=== PATIENT | male | born 1940 | race Hispanic/Latino ===

== ENCOUNTER 2017-04-20 12:00 | Inpatient (IN) | payer MEDICARE ==
[~2017-04-20] VITALS: Ht 174 cm; Wt 138.0 kg
[2017-04-20 10:10] VITALS: BP 126/60
[2017-04-20 10:12] LABS: BASOPHILS % (AUTO) 0.3 % (0.0-5.0); EOSINOPHILS % (AUTO) 2.7 % (0.0-8.0); LYMPHOCYTES % (AUTO) 23.1 % (21.0-51.0); MEAN CORPUSCULAR HGB CONC 33.7 g/dL (32.0-36.0); MEAN CORPUSCULAR VOLUME 89.1 fL (79-99); NEUTROPHILS % (AUTO) 66.9 % (40.0-77.0); PLATELET COUNT (AUTO) 195 K/uL (130-400); RED BLOOD CELL COUNT(AUTO) 4.61 MIL/uL (4.50-6.20); RED CELL DISTRIBUTION WIDTH 13.2 % (11.0-15.5); WHITE BLOOD COUNT (AUTO) 6.8 K/uL (4.8-10.8)
[2017-04-20 10:22] LABS: CREATININE 1.4 mg/dL (0.5-1.5); POTASSIUM 4.5 mmol/L (3.5-5.1)
[~2017-04-20 12:00] MED LIST: ASPI-1181 PO; DOCU-272 PO; ESCI20TA36 PO; HUM10VIA6 SQ; SIMV80TA5 PO; TAMS0.4C32 PO; TRAZ-147 PO; TURM500C9 PO
[2017-04-20] MEDS ORDERED: CLOP75TA14 PO (17:35)
[2017-04-21] MEDS ORDERED: FLUO-126 PO (12:59)
[2017-04-21] MEDS ORDERED: PRAZ1CAP5 PO (12:59)
[2017-04-23] VITALS (27 sets, daily range): BP systolic 76–139; BP diastolic 33–67
[2017-04-23] MEDS: CEFAZOLIN SODIUM 1 GM VIAL IVP SCH ×2 (06:00→08:00)
[2017-04-23] MEDS ORDERED: SODIUM CHLORIDE 0.9% 1000ML 1,000 ML IV ONE (06:09)
[2017-04-23] MEDS ORDERED: DURAMORPH PF1 MG/ML 10ML AMP IV ONE (06:41)
[2017-04-23] MEDS ORDERED: BUPIVACAINE/EPI/PF 0.25% 30ML VIAL IJ ONE (06:41)
[2017-04-23] MEDS ORDERED: THROMBIN-JMI 20000 UNIT KIT TP ONE (06:42)
[2017-04-23] MEDS ORDERED: SODIUM CHLORIDE 0.9% 10 ML VIAL ONE (06:44)
[2017-04-23] MEDS ORDERED: MIDAZOLAM HCL 1 MG/ML 2ML VIAL ONE (07:03)
[2017-04-23] MEDS ORDERED: PROPOFOL 10 MG/ML 20ML VIAL IV ONE (07:03)
[2017-04-23] MEDS ORDERED: GLYCOPYRROLATE 0.2 MG/ML 5 ML VIAL ONE ×2 (07:03→11:46)
[2017-04-23] MEDS ORDERED: LIDOCAINE PF 2% 5ML ABBOJECT ONE (07:03)
[2017-04-23] MEDS ORDERED: DEXAMETHASONE SOD PHOSPHATE 10MG/ML 1ML VIAL ONE ×2 (07:03→11:46)
[2017-04-23] MEDS ORDERED: FENTANYL CITRATE PF 50 MCG/1 ML 5ML AMP IV ONE ×2 (07:04→10:15)
[2017-04-23] MEDS ORDERED: FAMOTIDINE/PF 20 MG/2 ML VIAL IV ONE (07:29)
[2017-04-23] MEDS: BACITRACIN 50,000 UNIT VIAL ONE ×2 (07:30→11:00)
[2017-04-23] MEDS ORDERED: EPHEDRINE SULFATE 50 MG/ML AMPULE ONE (07:57)
[2017-04-23] MEDS ORDERED: PHENYLEPHRINE HCL 10 MG/ML 1ML VIAL IV ONE ×2 (08:36→11:47)
[2017-04-23] MEDS ORDERED: BACITRACIN 50,000 UNIT VIAL ONE (09:46)
[2017-04-23] MEDS ORDERED: MICROFIBRILLAR COLLAGEN 1 GM PACKAGE TP ONE (10:00)
[2017-04-23] MEDS ORDERED: GENTAMICIN 80 MG/NS 100 ML PB 100 ML IV ONE (11:00)
[2017-04-23] MEDS ORDERED: SUCCINYLCHOLINE CHLORIDE 20 MG/ML 10 ML VIAL ONE (11:45)
[2017-04-23] MEDS ORDERED: ROCURONIUM BROMIDE 10MG/1ML 5ML VL ONE ×2 (11:45)
[2017-04-23] MEDS ORDERED: NEOSTIGMINE METHYLSULFATE 1MG/ML IV ONE (11:46)
[2017-04-23] MEDS ORDERED: ONDANSETRON HCL MDV 20ML 2 MG/ML VIAL ONE (11:46)
[2017-04-23] MEDS ORDERED: ROPIVACAINE 0.5% 5MG/ML 30ML IJ ONE (11:46)
[2017-04-23] MEDS ORDERED: LIDOCAINE HCL 4% LTA SOL 4 ML VIAL ONE (11:46)
[2017-04-23] MEDS ORDERED: ARTIFICIAL TEARS 3.5 GM OINTMENT ONE (11:46)
[2017-04-23] MEDS ORDERED: CEFAZOLIN SODIUM 1 GM VIAL ONE (11:59)
[2017-04-23] MEDS ORDERED: FUROSEMIDE 10 MG/ML 4ML VIAL ONE (13:28)
[2017-04-23] MEDS ORDERED: LACTATED RINGERS 1000ML 1,000 ML IV SCH (13:39)
[2017-04-23] MEDS ORDERED: HYDROCODONE/ACETAMINOPHEN 5/325 MG TAB PO PRN (13:45)
[2017-04-23] MEDS ORDERED: PROMETHAZINE HCL 25 MG/ML 1ML AMPULE IM PRN ×2 (13:45)
[2017-04-23] MEDS ORDERED: MORPHINE SULFATE 2 MG/ML 1ML SYG IVP PRN ×2 (13:45)
[2017-04-23] MEDS ORDERED: DEXAMETHASONE SOD PHOSPHATE 4 MG/ML 1ML VIAL IVP SCH (13:45)
[2017-04-23] MEDS ORDERED: SODIUM CHLORIDE 0.9% 10 ML VIAL IVP PRN ×2 (13:45)
[2017-04-23] MEDS: DEXAMETHASONE SOD PHOSPHATE 4 MG/ML 1ML VIAL IVP SCH ×2 (13:45→17:51)
[2017-04-23] MEDS ORDERED: CEFAZOLIN 2GM / 50 ML 50 ML IV SCH (13:45)
[2017-04-23] MEDS: HYDROCODONE/ACETAMINOPHEN 5/325 MG TAB PO PRN ×2 (17:53→22:17)
[2017-04-23] MEDS: LACTATED RINGERS 1000ML 1,000 ML IV SCH (17:54)
[2017-04-23] MEDS ORDERED: PRAZOSIN HCL 1 MG PO SCH (21:00)
[2017-04-23] MEDS ORDERED: DOCUSATE SODIUM 100 MG CAP PO SCH (21:00)
[2017-04-23] MEDS ORDERED: TRAZODONE HCL 100 MG TABLET PO SCH (21:00)
[2017-04-23] MEDS ORDERED: ATORVASTATIN CALCIUM 20 MG TABLET PO SCH (21:00)
[2017-04-23] MEDS ORDERED: TAMSULOSIN HCL 0.4 MG CAP.ER.24H PO SCH (21:00)
[2017-04-23] MEDS: INSULIN HUMULIN 70/30 100 UNIT/ML 3ML SQ SCH (21:34)
[2017-04-23] MEDS ORDERED: BENZOCAINE/MENTH/CETYLPYRD CL 1 EACH LOZENGE MM ONE (21:37)
[2017-04-24] VITALS: BP 143/64
[2017-04-24] MEDS: DEXAMETHASONE SOD PHOSPHATE 4 MG/ML 1ML VIAL IVP SCH ×2 (01:48→07:01)
[2017-04-24] MEDS: LACTATED RINGERS 1000ML 1,000 ML IV SCH (01:48)
[2017-04-24 04:00] VITALS: BP 128/57
[2017-04-24] MEDS: INSULIN HUMULIN 70/30 100 UNIT/ML 3ML SQ SCH (06:59)
[2017-04-24 08:14] VITALS: BP 117/55
[2017-04-24] MEDS ORDERED: ASPIRIN 81 MG EC TAB PO SCH (09:00)
[2017-04-24] MEDS ORDERED: FLUOXETINE HCL 20 MG CAPSULE PO SCH (09:00)
[2017-04-24] MEDS ORDERED: TURMERIC ROOT EXTRACT 500 MG PO SCH (09:00)
[2017-04-24] MEDS: HYDROCODONE/ACETAMINOPHEN 5/325 MG TAB PO PRN (09:09)
== END 2017-04-24 10:05 | disposition home or self-care (01) | DRG 460 ==
LOC: EDSTATUS 12:00 → DAHIP 04-23 05:46 → 4AH 04-23 15:11
PROVIDERS: ADMIT Neurological Surgery; ATTEND Neurological Surgery
PROC: 0SG00AJ Fusion of Lumbar Vertebral Joint with Interbody Fusion Device, Posterior Approach, Anterior Column, Open Approach (ICD-10-PCS; principal; 2017-04-23 07:30)
PROC: 0SB20ZZ Excision of Lumbar Vertebral Disc, Open Approach (ICD-10-PCS; 2017-04-23 07:30)
PROC: 4A11X4G Monitoring of Peripheral Nervous Electrical Activity, Intraoperative, External Approach (ICD-10-PCS; 2017-04-23 07:30)
DX: M48.061 Spinal stenosis, lumbar region without neurogenic claudication (principal); Z68.42 Body mass index [BMI] 45.0-49.9, adult; M51.16 Intervertebral disc disorders with radiculopathy, lumbar region; E66.9 Obesity, unspecified; I73.9 Peripheral vascular disease, unspecified; M25.78 Osteophyte, vertebrae; Z98.1 Arthrodesis status
CPT/HCPCS: 36415; 72020; 80048; 82948; 85025; A4344; J0330; J0690; J1100; J1580; J1815; J1940; J2001; J2250; J2274; J2370; J2704; J2710; J2795; J3010; J3490; J7030; J7120

== ENCOUNTER → 2017-05-22 | Outpatient (CLI) | payer MEDICARE ==
[~2017-05-22] MED LIST changes: -ESCI20TA36 PO; +FLUO-126 PO; +PRAZ1CAP5 PO; -SIMV80TA5 PO; +SIMV80TA7 PO; -TRAZ-147 PO; +TRAZ-187 PO
== END | disposition home or self-care (01) ==
LOC: OIH 09:56
PROVIDERS: ATTEND Neurological Surgery
DX: M43.27 Fusion of spine, lumbosacral region (principal)
CPT/HCPCS: 72100

== ENCOUNTER 2020-10-29 14:09 | Emergency (ER) | payer MEDICARE, OTHER ==
[~2020-10-29] VITALS: Ht 172.7 cm; Wt 140.6 kg
[~2020-10-29 14:09] MED LIST changes: -ASPI-1181 PO; +ASPI-1443 PO; -DOCU-272 PO; +DOCU-280 PO; -FLUO-126 PO; +FLUO20CA35 PO; -SIMV80TA7 PO; +SIMV80TA91 PO
[2020-10-29 16:31] VITALS: BP 110/77
[2020-10-29 16:34] LABS: BASOPHILS % (AUTO) 0.3 % (0.0-5.0); EOSINOPHILS % (AUTO) 2.5 % (0.0-8.0); HEMATOCRIT 43.4 % (42-54); LYMPHOCYTES % (AUTO) 20.9 % (21.0-51.0); MEAN CORPUSCULAR HEMOGLOBIN 29.9 pg (27.0-33.0); MEAN CORPUSCULAR HGB CONC 32.5 g/dL (32.0-36.0); MEAN CORPUSCULAR VOLUME 91.9 fL (79-99); MONOCYTES % (AUTO) 6.5 % (3.0-13.0); NEUTROPHILS % (AUTO) 69.1 % (40.0-77.0); PLATELET COUNT (AUTO) 220 K/uL (130-400); RED BLOOD CELL COUNT(AUTO) 4.72 MIL/uL (4.50-6.20); RED CELL DISTRIBUTION WIDTH 12.9 % (11.0-15.5); WHITE BLOOD COUNT (AUTO) 8.9 K/uL (4.8-10.8)
[2020-10-29 16:50] LABS: ALBUMIN 3.4 g/dL (3.5-5.0); BILIRUBIN,TOTAL 0.5 mg/dL (0.2-1.0); CREATININE 1.3 mg/dL (0.5-1.5); POTASSIUM 4.4 mmol/L (3.5-5.1); TOTAL PROTEIN, SERUM 7.1 g/dL (6.0-8.3)
[2020-10-29 16:57] LABS: CRP QUANTITATIVE 3.4 mg/L (0.00-9.0)
[2020-10-29] MEDS ORDERED: HYDROCODONE/ACETAMINOPHEN 10/325 MG TAB PO ONE (17:00)
[2020-10-29] MEDS ORDERED: ACET-2247 PO (17:52)
== END 2020-10-29 17:58 | disposition home or self-care (01) ==
LOC: EDH 14:09
DX: S86.911A Strain of unspecified muscle(s) and tendon(s) at lower leg level, right leg, initial encounter (principal); E11.9 Type 2 diabetes mellitus without complications; E66.9 Obesity, unspecified; F32.9 Major depressive disorder, single episode, unspecified; F43.10 Post-traumatic stress disorder, unspecified; I25.10 Atherosclerotic heart disease of native coronary artery without angina pectoris; Z79.4 Long term (current) use of insulin; Z79.82 Long term (current) use of aspirin; Z79.899 Other long term (current) drug therapy; Z88.8 Allergy status to other drugs, medicaments and biological substances; Z68.42 Body mass index [BMI] 45.0-49.9, adult; X58.XXXA Exposure to other specified factors, initial encounter; Y93.89 Activity, other specified; Y92.89 Other specified places as the place of occurrence of the external cause; Y99.8 Other external cause status
CPT/HCPCS: 36415; 71045; 80053; 84484; 85025; 86140; 93005; 93971

== ENCOUNTER → 2021-03-25 | Outpatient (CLI) | payer OTHER ==
[~2021-03-25] VITALS: Ht 172.7 cm; Wt 146.1 kg
[~2021-03-25] MED LIST changes: +ACET-2247 PO; -FLUO20CA35 PO; +FLUO20CA36 PO; +REGADENOSON 0.4 MG/5 ML PF SYG IVP SCH
== END | disposition home or self-care (01) ==
LOC: SHCH 08:07
PROVIDERS: ATTEND Internal Medicine
DX: R06.02 Shortness of breath (principal)
CPT/HCPCS: 78452; 93017; 96374; A9500 ×2; J2785

== ENCOUNTER → 2021-08-14 | Outpatient (CLI) | payer OTHER ==
[~2021-08-14] MED LIST changes: +ATOR40TA69 PO; +CALC-909 PO; +CYAN100084 PO; +DULOXETINE PO; +ERGO500093 PO; +FINA5TAB41 PO; +FISH1CAP27 PO; +INSU100I35 SQ; +LOSA25TA41 PO; +METO-408 PO; +PERFLUTREN PROTEIN-A MICROSPHR 0.22 MG/ML VIAL IV ONE; -REGADENOSON 0.4 MG/5 ML PF SYG IVP SCH
== END | disposition home or self-care (01) ==
LOC: RAH 12:26
PROVIDERS: ATTEND Internal Medicine
DX: R06.02 Shortness of breath (principal); R55 Syncope and collapse
CPT/HCPCS: 96374; C8929; Q9956

== ENCOUNTER 2021-08-15 06:51 | Day surgery (SDC) | payer OTHER ==
[2021-08-09 15:44] LABS: APPEARANCE,URINE CLEAR (CLEAR); BILIRUBIN,URINE NEGATIVE (NEGATIVE); COLOR,URINE YELLOW (YELLOW); GLUCOSE, URINE (UA) NEGATIVE (NEGATIVE); KETONES,URINE NEGATIVE (NEGATIVE); LEUKOCYTE ESTERASE ,URINE NEGATIVE (NEGATIVE); NITRATE,URINE NEGATIVE (NEGATIVE); OCCULT BLOOD,URINE NEGATIVE (NEGATIVE); PROTEIN,URINE NEGATIVE (NEGATIVE); UROBILINOGEN,URINE 0.2 mg/dL (0.2-1.0)
[2021-08-09 15:45] LABS: BASOPHILS % (AUTO) 0.2 % (0.0-5.0); HEMATOCRIT 42.1 % (42-54); LYMPHOCYTES % (AUTO) 13.7 % (21.0-51.0); MEAN CORPUSCULAR HGB CONC 31.8 g/dL (32.0-36.0); MEAN CORPUSCULAR VOLUME 94.4 fL (79-99); MONOCYTES % (AUTO) 7.2 % (3.0-13.0); NEUTROPHILS % (AUTO) 76.2 % (40.0-77.0); PLATELET COUNT (AUTO) 217 K/uL (130-400); RED BLOOD CELL COUNT(AUTO) 4.46 MIL/uL (4.50-6.20); RED CELL DISTRIBUTION WIDTH 13.2 % (11.0-15.5); WHITE BLOOD COUNT (AUTO) 9.9 K/uL (4.8-10.8)
[2021-08-09 15:49] LABS: CREATININE 1.5 mg/dL (0.5-1.5); POTASSIUM 4.6 mmol/L (3.5-5.1)
[2021-08-09 15:52] LABS: INR 0.94 (0.85-1.15); PROTHROMBIN TIME 10.3 SEC (9.6-11.6)
[2021-08-09 15:53] LABS: PARTIAL THROMBOPLASTIN TIME 27.3 SEC (26.3-35.5)
[2021-08-09 16:16] LABS: B-TYPE NATRIURETIC PEPTIDE 59 pg/mL (0-100)
[2021-08-13 16:34] VITALS: BP 156/86
[~2021-08-15] VITALS: Ht 172.7 cm; Wt 151.1 kg
[2021-08-15] VITALS (9 sets, daily range): BP systolic 111–142; BP diastolic 42–60
[~2021-08-15 06:51] MED LIST changes: -ACET-2247 PO; -DOCU-280 PO; -FLUO20CA36 PO; -HUM10VIA6 SQ; -PERFLUTREN PROTEIN-A MICROSPHR 0.22 MG/ML VIAL IV ONE; -PRAZ1CAP5 PO; -SIMV80TA91 PO; -TURM500C9 PO
[2021-08-15] MEDS ORDERED: 0.9%NACL 1000ML 1,000 ML IV ONE (07:33)
[2021-08-15] MEDS ORDERED: HEPARIN 10,000 UNIT/10ML (1,000 UNIT/ML) VIAL ONE (09:09)
[2021-08-15] MEDS ORDERED: NICARDIPINE 25MG INJ IV ONE (09:09)
[2021-08-15] MEDS ORDERED: NITROGLYCERIN 50MG VIAL ONE (09:10)
[2021-08-15] MEDS ORDERED: LIDOCAINE HCL 400MG/20ML VIAL ONE (09:10)
[2021-08-15] MEDS ORDERED: IOHEXOL-350 50ML VIAL IV ONE (09:10)
[2021-08-15] MEDS ORDERED: FENTANYL CITRATE PF 50 MCG/1 ML 2ML VIAL ONE (09:10)
[2021-08-15] MEDS ORDERED: IOHEXOL-350 75 ML VIAL IV ONE (09:10)
[2021-08-15] MEDS ORDERED: MIDAZOLAM HCL 1 MG/ML 2ML VIAL ONE (09:10)
[2021-08-15] MEDS ORDERED: GLUCAGON 1MG KIT 1 MG ML IM PRN (10:30)
[2021-08-15] MEDS ORDERED: DEXTROSE 50%-WATER 50 ML DISP.SYRIN IV PRN (10:30)
[2021-08-15] MEDS ORDERED: 0.9%NACL 1000ML 1,000 ML IV SCH (10:30)
== END 2021-08-15 14:30 | disposition home or self-care (01) ==
LOC: DAH 06:51
PROVIDERS: ATTEND Internal Medicine
DX: I25.119 Atherosclerotic heart disease of native coronary artery with unspecified angina pectoris (principal); I49.1 Atrial premature depolarization; E78.5 Hyperlipidemia, unspecified; E11.51 Type 2 diabetes mellitus with diabetic peripheral angiopathy without gangrene; G47.30 Sleep apnea, unspecified; E66.01 Morbid (severe) obesity due to excess calories; F32.9 Major depressive disorder, single episode, unspecified; I10 Essential (primary) hypertension; M16.0 Bilateral primary osteoarthritis of hip; Z68.42 Body mass index [BMI] 45.0-49.9, adult; Z79.82 Long term (current) use of aspirin; Z79.01 Long term (current) use of anticoagulants; Z79.899 Other long term (current) drug therapy
CPT/HCPCS: 36415; 71045; 80048; 81003; 82948 ×2; 83880; 85025; 85610; 85730; 93005; 93458; A4215; A4216; A4221; A4222; A4223 ×3; A4606; A4663; C1769; C1894; J1644 ×2; J2250; J3010; J3490 ×3; J7030; Q9967; 99156; 99157

== ENCOUNTER 2021-12-19 15:22 | Emergency (ER) | payer OTHER ==
[~2021-12-19] VITALS: Ht 172.7 cm; Wt 140.6 kg
[2021-12-19 16:09] LABS: BASOPHILS % (AUTO) 0.3 % (0.0-5.0); HEMATOCRIT 39.1 % (42-54); LYMPHOCYTES % (AUTO) 18.6 % (21.0-51.0); MEAN CORPUSCULAR HEMOGLOBIN 30.5 pg (27.0-33.0); MEAN CORPUSCULAR HGB CONC 32.7 g/dL (32.0-36.0); MEAN CORPUSCULAR VOLUME 93.1 fL (79-99); MONOCYTES % (AUTO) 6.9 % (3.0-13.0); NEUTROPHILS % (AUTO) 71.6 % (40.0-77.0); PLATELET COUNT (AUTO) 202 K/uL (130-400); RED CELL DISTRIBUTION WIDTH 13.2 % (11.0-15.5)
[2021-12-19 16:18] LABS: CREATININE 1.4 mg/dL (0.5-1.5); POTASSIUM 4.5 mmol/L (3.5-5.1)
[2021-12-19 16:22] LABS: INR 0.99 (0.85-1.15); PROTHROMBIN TIME 10.8 SEC (9.6-11.6)
[2021-12-19 16:28] LABS: ALBUMIN 3.1 g/dL (3.5-5.0); TOTAL PROTEIN, SERUM 6.5 g/dL (6.0-8.3)
[2021-12-19 16:31] LABS: B-TYPE NATRIURETIC PEPTIDE 159 pg/mL (0-100)
[2021-12-19] MEDS ORDERED: IOHEXOL 350 MG/ML 100ML INFUS..BTL IV ONE (19:01)
[2021-12-19 22:41] VITALS: BP 136/64
== END 2021-12-19 22:59 | disposition home or self-care (01) ==
LOC: EDH 15:22
DX: M79.10 Myalgia, unspecified site (principal); R97.8 Other abnormal tumor markers; Z20.822 Contact with and (suspected) exposure to COVID-19; I25.10 Atherosclerotic heart disease of native coronary artery without angina pectoris; E11.9 Type 2 diabetes mellitus without complications; E78.00 Pure hypercholesterolemia, unspecified; I10 Essential (primary) hypertension; F43.10 Post-traumatic stress disorder, unspecified; F32.A Depression, unspecified; Z98.890 Other specified postprocedural states; Z79.899 Other long term (current) drug therapy; Z79.82 Long term (current) use of aspirin; Z79.4 Long term (current) use of insulin; Z88.8 Allergy status to other drugs, medicaments and biological substances
CPT/HCPCS: 99285; 71270; 71045; 87635; 82550; 84484; 80053; 83880; 85025; 85378; 85610; 36415; 93005; C9803; Q9967

== ENCOUNTER → 2022-03-19 | Outpatient (CLI) | payer OTHER ==
[~2022-03-19] MED LIST changes: +IOHEXOL 350 MG/ML 100ML INFUS..BTL IV ONE
== END | disposition home or self-care (01) ==
LOC: RAH 08:38
PROVIDERS: ATTEND Internal Medicine Gastroenterology
DX: R10.13 Epigastric pain (principal)
CPT/HCPCS: 74178; Q9967

== ENCOUNTER → 2022-06-11 | Outpatient (CLI) | payer OTHER ==
[~2022-06-11] MED LIST changes: -IOHEXOL 350 MG/ML 100ML INFUS..BTL IV ONE
== END | disposition home or self-care (01) ==
LOC: RAH 10:56
PROVIDERS: ATTEND Internal Medicine Critical Care Medicine
DX: M48.062 Spinal stenosis, lumbar region with neurogenic claudication (principal); M51.36 Other intervertebral disc degeneration, lumbar region; M47.816 Spondylosis without myelopathy or radiculopathy, lumbar region
CPT/HCPCS: 72100; 72148

== ENCOUNTER 2022-07-22 06:04 | Observation (INO) | payer OTHER ==
[2022-07-21 11:02] LABS: BASOPHILS % (AUTO) 0.3 % (0.0-5.0); EOSINOPHILS % (AUTO) 1.7 % (0.0-8.0); HEMATOCRIT 38.9 % (42-54); LYMPHOCYTES % (AUTO) 12.6 % (21.0-51.0); MEAN CORPUSCULAR HEMOGLOBIN 28.8 pg (27.0-33.0); MEAN CORPUSCULAR HGB CONC 30.8 g/dL (32.0-36.0); MEAN CORPUSCULAR VOLUME 93.5 fL (79-99); MONOCYTES % (AUTO) 7.4 % (3.0-13.0); NEUTROPHILS % (AUTO) 77.4 % (40.0-77.0); PLATELET COUNT (AUTO) 351 K/uL (130-400); RED BLOOD CELL COUNT(AUTO) 4.16 MIL/uL (4.50-6.20); RED CELL DISTRIBUTION WIDTH 13.3 % (11.0-15.5); WHITE BLOOD COUNT (AUTO) 11.5 K/uL (4.8-10.8)
[2022-07-21 11:10] LABS: CREATININE 1.3 mg/dL (0.5-1.5)
[2022-07-21 11:39] VITALS: BP 123/62
[~2022-07-22] VITALS: Ht 172.7 cm; Wt 145.1 kg
[2022-07-22] VITALS (17 sets, daily range): BP systolic 112–161; BP diastolic 54–92
[~2022-07-22 06:04] MED LIST changes: -ASPI-1443 PO; +CLOP75TA32 PO; +DICY20TA3 PO; -DULOXETINE PO; -ERGO500093 PO; +PANT40TA54 PO; +SOLI10TA7 PO; +SUCR1TAB2 PO; +VENL150T3 PO; +VITAMIN D PO
[2022-07-22] MEDS ORDERED: CEFAZOLIN SODIUM 1 GM VIAL ONE ×2 (07:10→11:57)
[2022-07-22] MEDS ORDERED: 0.9%NACL 1000ML 1,000 ML IV ONE (07:10)
[2022-07-22 07:23] LABS: BASOPHILS % (AUTO) 0.2 % (0.0-5.0); EOSINOPHILS % (AUTO) 1.5 % (0.0-8.0); HEMATOCRIT 35.8 % (42-54); LYMPHOCYTES % (AUTO) 13.3 % (21.0-51.0); MEAN CORPUSCULAR HEMOGLOBIN 29.3 pg (27.0-33.0); MEAN CORPUSCULAR HGB CONC 31.3 g/dL (32.0-36.0); MEAN CORPUSCULAR VOLUME 93.7 fL (79-99); MONOCYTES % (AUTO) 8.3 % (3.0-13.0); PLATELET COUNT (AUTO) 287 K/uL (130-400); RED BLOOD CELL COUNT(AUTO) 3.82 MIL/uL (4.50-6.20); RED CELL DISTRIBUTION WIDTH 13.2 % (11.0-15.5); WHITE BLOOD COUNT (AUTO) 11.1 K/uL (4.8-10.8)
[2022-07-22] MEDS ORDERED: DEXTROSE 50%-WATER 50 ML DISP.SYRIN IV ONE ×3 (07:26→12:34)
[2022-07-22] MEDS ORDERED: LIDOCAINE 2%-EPI 1:200,000 20 ML VIAL IJ ONE (07:30)
[2022-07-22] MEDS ORDERED: BUPIVACAINE/PF 0.25% 30ML VIAL IJ ONE (07:30)
[2022-07-22] MEDS ORDERED: PHARMACY COMMUNICATION MISC SCH (07:30)
[2022-07-22] MEDS ORDERED: DEXTROSE 5%-WATER 1,000 ML IV STA (10:48)
[2022-07-22] MEDS ORDERED: DEXTROSE 5 %-0.45 % NACL 1,000 ML IV STA (11:10)
[2022-07-22] MEDS ORDERED: BUPIVACAINE/EPI/PF 0.25% 10ML VIAL IJ SCH (11:30)
[2022-07-22] MEDS: LIDOCAINE 2%-EPI 1:200,000 20 ML VIAL IJ SCH ×2 (11:30→13:16)
[2022-07-22] MEDS ORDERED: DEXAMETHASONE SOD PHOSPHATE 10MG/ML 1ML VIAL ONE ×2 (11:31→12:13)
[2022-07-22] MEDS ORDERED: MIDAZOLAM HCL 1 MG/ML 2ML VIAL ONE (11:31)
[2022-07-22] MEDS ORDERED: SUCCINYLCHOLINE CHLORIDE 20 MG/ML 10 ML VIAL ONE (11:31)
[2022-07-22] MEDS ORDERED: PROPOFOL 10 MG/ML 20ML VIAL IV ONE (11:31)
[2022-07-22] MEDS ORDERED: LIDOCAINE PF 100MG/5ML (2%) SYRINGE 5ML ONE (11:31)
[2022-07-22] MEDS ORDERED: GLYCOPYRROLATE 1 MG/5 ML SYRINGE ONE (11:31)
[2022-07-22] MEDS ORDERED: NEOSTIGMINE 5MG/5ML SYR IV ONE (11:32)
[2022-07-22] MEDS ORDERED: ROCURONIUM 10MG/1ML SYR 10 MG/ML ML ONE (11:32)
[2022-07-22] MEDS ORDERED: FENTANYL CITRATE PF 50 MCG/1 ML 2ML VIAL ONE ×2 (11:32→14:41)
[2022-07-22] MEDS ORDERED: ONDANSETRON 4MG INJ ONE (11:32)
[2022-07-22] MEDS ORDERED: MORPHINE PF 100MG/10ML AMP IV ONE (11:57)
[2022-07-22] MEDS ORDERED: THROMBIN-JMI 5000 UNIT/VIAL TP ONE (11:58)
[2022-07-22] MEDS ORDERED: THROMBIN-JMI 20000 UNIT KIT TP ONE (12:57)
[2022-07-22] MEDS ORDERED: OXYMETAZOLINE HCL SPRAY 15 ML BOTTLE ONE (13:22)
[2022-07-22] MEDS ORDERED: PHENYLEPHRINE HCL 10 MG/ML 1ML VIAL IV ONE (14:20)
[2022-07-22] MEDS ORDERED: PROMETHAZINE HCL 25 MG/ML 1ML AMPULE IM PRN (16:30)
[2022-07-22] MEDS ORDERED: 0.9%NACL 10ML VIAL IVP PRN (16:30)
[2022-07-22] MEDS ORDERED: HYDROCODONE/ACETAMINOPHEN 5/325 MG TAB PO PRN (16:30)
[2022-07-22] MEDS: DEXAMETHASONE SOD PHOSPHATE 4 MG/ML 1ML VIAL IVP SCH ×2 (16:30→23:11)
[2022-07-22] MEDS ORDERED: VITAMIN D 50000 UNIT PO SCH (16:30)
[2022-07-22] MEDS ORDERED: MORPHINE 2 MG SYG IVP PRN (16:30)
[2022-07-22] MEDS: NOVOLIN SQ SCH (17:00)
[2022-07-22] MEDS ORDERED: IPRATROPIUM/ALBUTEROL SULFATE 3 ML SOLUTION IH ONE (17:10)
[2022-07-22] MEDS: LACTATED RINGERS 1000ML 1,000 ML IV SCH (17:56)
[2022-07-22] MEDS: DICYCLOMINE HCL 20 MG TAB PO SCH (20:05)
[2022-07-22] MEDS: CA 600MG+VIT D 400 UNIT TAB 1 TAB TABLET PO SCH (20:05)
[2022-07-22] MEDS: SUCRALFATE 1 GM TABLET PO SCH (20:05)
[2022-07-22] MEDS: LOSARTAN 25 MG TABLET PO SCH (20:05)
[2022-07-22] MEDS: ATORVASTATIN 40 MG TABLET PO SCH (20:06)
[2022-07-22] MEDS: FISH OIL 1000 MG/CAP PO SCH (20:06)
[2022-07-22] MEDS: TAMSULOSIN HCL 0.4 MG CAP.ER.24H PO SCH (20:06)
[2022-07-22] MEDS: TRAZODONE HCL 100 MG TABLET PO SCH (20:06)
[2022-07-22] MEDS: INSULIN HUMULIN R 100 UNIT/ML 3ML SQ SCH (20:39)
[2022-07-22] MEDS ORDERED: VITAMIN D3 PO SCH (21:00)
[2022-07-22] MEDS ORDERED: [UNRECOGNIZED DRUG - OTHER] PO SCH (21:00)
[2022-07-22] MEDS ORDERED: CALCIUM CARBONATE PO SCH (21:00)
[2022-07-22] MEDS: CEFAZOLIN SODIUM 1 GM VIAL IVPB SCH ×2 (23:11→23:12)
[2022-07-23] VITALS: BP 138/76
[2022-07-23 04:00] VITALS: BP 139/75
[2022-07-23] MEDS: DEXAMETHASONE SOD PHOSPHATE 4 MG/ML 1ML VIAL IVP SCH ×2 (05:05→10:30)
[2022-07-23] MEDS: LACTATED RINGERS 1000ML 1,000 ML IV SCH ×2 (05:12→19:10)
[2022-07-23] MEDS: INSULIN HUMULIN R 100 UNIT/ML 3ML SQ SCH ×4 (06:24→20:54)
[2022-07-23] MEDS: CEFAZOLIN SODIUM 1 GM VIAL IVPB SCH ×2 (07:46→13:58)
[2022-07-23] MEDS: LIDOCAINE 2%-EPI 1:200,000 20 ML VIAL IJ SCH (07:47)
[2022-07-23 08:00] VITALS: BP 124/65
[2022-07-23] MEDS: Solifenacin Succinate 10 MG PO SCH (09:00)
[2022-07-23] MEDS ORDERED: ERGOCALCIFEROL (VITAMIN D2) 50,000 UNIT CAPSULE PO SCH (09:00)
[2022-07-23] MEDS: Cyanocobalamin (Vitamin B-12) 1,000 MCG PO SCH (09:00)
[2022-07-23] MEDS: VENLAFAXINE HCL 150 MG PO SCH (09:00)
[2022-07-23] MEDS: PANTOPRAZOLE 40 MG TAB DR PO SCH (09:19)
[2022-07-23] MEDS: FINASTERIDE 5 MG TABLET PO SCH (09:19)
[2022-07-23] MEDS: DICYCLOMINE HCL 20 MG TAB PO SCH ×3 (09:19→20:52)
[2022-07-23] MEDS: METOPROLOL SUCCINATE 25 MG TAB.SR.24H PO SCH (09:19)
[2022-07-23] MEDS: CA 600MG+VIT D 400 UNIT TAB 1 TAB TABLET PO SCH ×2 (09:19→20:51)
[2022-07-23] MEDS: SUCRALFATE 1 GM TABLET PO SCH ×2 (09:19→20:52)
[2022-07-23 12:00] VITALS: BP 116/56
[2022-07-23] MEDS: NOVOLIN SQ SCH ×2 (12:00→17:00)
[2022-07-23 16:00] VITALS: BP 122/63
[2022-07-23] MEDS: TAMSULOSIN HCL 0.4 MG CAP.ER.24H PO SCH (20:51)
[2022-07-23] MEDS: ATORVASTATIN 40 MG TABLET PO SCH (20:51)
[2022-07-23] MEDS: LOSARTAN 25 MG TABLET PO SCH (20:51)
[2022-07-23] MEDS: FISH OIL 1000 MG/CAP PO SCH (20:52)
[2022-07-23] MEDS: TRAZODONE HCL 100 MG TABLET PO SCH (20:52)
[2022-07-23 20:54] VITALS: BP 118/62
[2022-07-24] VITALS (7 sets, daily range): BP systolic 102–149; BP diastolic 49–75
[2022-07-24] MEDS: CEFAZOLIN SODIUM 1 GM VIAL IVPB SCH ×4 (00:30→22:03)
[2022-07-24] MEDS: INSULIN HUMULIN R 100 UNIT/ML 3ML SQ SCH ×4 (06:29→22:06)
[2022-07-24] MEDS: LACTATED RINGERS 1000ML 1,000 ML IV SCH ×2 (08:30→21:50)
[2022-07-24] MEDS: VENLAFAXINE HCL 150 MG PO SCH (09:00)
[2022-07-24] MEDS: Solifenacin Succinate 10 MG PO SCH (09:00)
[2022-07-24] MEDS: Cyanocobalamin (Vitamin B-12) 1,000 MCG PO SCH (09:00)
[2022-07-24] MEDS: FINASTERIDE 5 MG TABLET PO SCH (09:09)
[2022-07-24] MEDS: METOPROLOL SUCCINATE 25 MG TAB.SR.24H PO SCH (09:09)
[2022-07-24] MEDS: CA 600MG+VIT D 400 UNIT TAB 1 TAB TABLET PO SCH ×2 (09:09→22:02)
[2022-07-24] MEDS: PANTOPRAZOLE 40 MG TAB DR PO SCH (09:09)
[2022-07-24] MEDS: DICYCLOMINE HCL 20 MG TAB PO SCH ×3 (09:09→22:02)
[2022-07-24] MEDS: SUCRALFATE 1 GM TABLET PO SCH ×2 (09:09→22:03)
[2022-07-24] MEDS: LIDOCAINE 2%-EPI 1:200,000 20 ML VIAL IJ SCH (11:12)
[2022-07-24] MEDS: NOVOLIN SQ SCH ×2 (11:28→17:00)
[2022-07-24] MEDS: LOSARTAN 25 MG TABLET PO SCH (22:02)
[2022-07-24] MEDS: TAMSULOSIN HCL 0.4 MG CAP.ER.24H PO SCH (22:02)
[2022-07-24] MEDS: FISH OIL 1000 MG/CAP PO SCH (22:03)
[2022-07-24] MEDS: ATORVASTATIN 40 MG TABLET PO SCH (22:03)
[2022-07-24] MEDS: TRAZODONE HCL 100 MG TABLET PO SCH (22:03)
[2022-07-25 03:51] VITALS: BP 135/55
[2022-07-25] MEDS: LACTATED RINGERS 1000ML 1,000 ML IV SCH (06:34)
[2022-07-25] MEDS: CEFAZOLIN SODIUM 1 GM VIAL IVPB SCH (06:34)
[2022-07-25] MEDS: INSULIN HUMULIN R 100 UNIT/ML 3ML SQ SCH ×2 (06:34→12:02)
[2022-07-25 08:00] VITALS: BP 125/76
[2022-07-25] MEDS: VENLAFAXINE HCL 150 MG PO SCH (09:00)
[2022-07-25] MEDS: Cyanocobalamin (Vitamin B-12) 1,000 MCG PO SCH (09:00)
[2022-07-25] MEDS: Solifenacin Succinate 10 MG PO SCH (09:00)
[2022-07-25] MEDS: DICYCLOMINE HCL 20 MG TAB PO SCH ×2 (09:09→14:00)
[2022-07-25] MEDS: FINASTERIDE 5 MG TABLET PO SCH (09:10)
[2022-07-25] MEDS: PANTOPRAZOLE 40 MG TAB DR PO SCH (09:10)
[2022-07-25] MEDS: SUCRALFATE 1 GM TABLET PO SCH (09:10)
[2022-07-25] MEDS: METOPROLOL SUCCINATE 25 MG TAB.SR.24H PO SCH (09:10)
[2022-07-25] MEDS: CA 600MG+VIT D 400 UNIT TAB 1 TAB TABLET PO SCH (09:10)
[2022-07-25] MEDS: LIDOCAINE 2%-EPI 1:200,000 20 ML VIAL IJ SCH (11:30)
[2022-07-25 12:00] VITALS: BP 138/53
[2022-07-25] MEDS: NOVOLIN SQ SCH (12:00)
== END 2022-07-25 15:40 ==
LOC: DAHIP 06:04 → 4CH 17:45 → EDSTATUS 07-23 08:00
PROVIDERS: ADMIT Neurological Surgery; ATTEND Neurological Surgery
DX: M48.061 Spinal stenosis, lumbar region without neurogenic claudication (principal); Z20.822 Contact with and (suspected) exposure to COVID-19; I25.10 Atherosclerotic heart disease of native coronary artery without angina pectoris; I10 Essential (primary) hypertension; E66.01 Morbid (severe) obesity due to excess calories; I73.9 Peripheral vascular disease, unspecified; K25.9 Gastric ulcer, unspecified as acute or chronic, without hemorrhage or perforation; K44.9 Diaphragmatic hernia without obstruction or gangrene; K80.20 Calculus of gallbladder without cholecystitis without obstruction; Z98.61 Coronary angioplasty status; Z79.899 Other long term (current) drug therapy
CPT/HCPCS: 80048; 85025 ×2; 87426; 36415 ×2; 71045; 63047; 63048 ×2; 96374; 96376 ×2; 96372 ×3; 96375; 82948 ×15; 72020; 94640; 97161; 97116 ×3; 97039 ×3; 87635; A6260; G0378 ×69; A4663; J7030 ×2; J7120; A4344; J3010 ×2; J0690 ×3; J3490 ×6; J1100 ×4; J2710; J0330; J7070 ×3; J2001; J2250; J2704; J2274; J2405; J2370; A6219; A4649; A4215; A4223; A4222; A4221; A4600; A4510; J1815

== ENCOUNTER → 2022-09-15 | Outpatient (CLI) | payer OTHER ==
[~2022-09-15] MED LIST changes: -CLOP75TA32 PO
== END | disposition home or self-care (01) ==
LOC: RAH 12:45
PROVIDERS: ATTEND Neurological Surgery
DX: M47.22 Other spondylosis with radiculopathy, cervical region (principal); M48.02 Spinal stenosis, cervical region
CPT/HCPCS: 72141

== ENCOUNTER → 2022-12-29 | Outpatient (CLI) | payer OTHER | END | disposition home or self-care (01) | LOC: RAH 13:24 | PROVIDERS: ATTEND Surgery | DX: K80.20 Calculus of gallbladder without cholecystitis without obstruction (principal); M47.815 Spondylosis without myelopathy or radiculopathy, thoracolumbar region; I70.0 Atherosclerosis of aorta; K57.90 Diverticulosis of intestine, part unspecified, without perforation or abscess without bleeding | CPT/HCPCS: 74176 ==

== ENCOUNTER 2023-05-19 05:30 | Day surgery (SDC) | payer OTHER ==
[~2023-05-19] VITALS: Ht 170.2 cm; Wt 120.2 kg
[2023-05-19] VITALS (11 sets, daily range): BP systolic 108–138; BP diastolic 59–80; PULSE 79–93; RESP 15–17
[~2023-05-19 05:30] MED LIST changes: +CLOP75TA32 PO; +ERGO500093 PO; +FAMO40TA7 PO; +FURO20TA4 PO; +INSU10VI3 SQ; +OMEP40CA21 PO; +VENL-191 PO; +VENL-63 PO; -VENL150T3 PO
[2023-05-19] MEDS: 0.9%NACL 1000ML 1,000 ML IV ONE (06:31)
[2023-05-19] MEDS ORDERED: LIDOCAINE HCL 1% 20 ML VIAL ONE (07:12)
[2023-05-19] MEDS ORDERED: PROPOFOL 10 MG/ML 20ML VIAL IV ONE ×3 (07:12→07:41)
== END 2023-05-19 08:45 | disposition home or self-care (01) ==
LOC: DAH 05:30 → ENDO 05:30
PROVIDERS: ATTEND Internal Medicine Gastroenterology
DX: K59.04 Chronic idiopathic constipation (principal); D12.6 Benign neoplasm of colon, unspecified; Z86.010 Personal history of colon polyps; D49.0 Neoplasm of unspecified behavior of digestive system; K57.30 Diverticulosis of large intestine without perforation or abscess without bleeding; K64.0 First degree hemorrhoids; K21.9 Gastro-esophageal reflux disease without esophagitis; K29.50 Unspecified chronic gastritis without bleeding; K44.9 Diaphragmatic hernia without obstruction or gangrene; R13.10 Dysphagia, unspecified; K80.20 Calculus of gallbladder without cholecystitis without obstruction; E11.51 Type 2 diabetes mellitus with diabetic peripheral angiopathy without gangrene; F32.A Depression, unspecified; E78.5 Hyperlipidemia, unspecified; Z98.890 Other specified postprocedural states; Z79.899 Other long term (current) drug therapy
CPT/HCPCS: 82948; 45381; 45380; J7030 ×2; J2704 ×3; A4620; A4215 ×2; A4223; A7002; A4222; A4221; A4663; A4606; J3490

== ENCOUNTER 2024-01-26 08:33 | Day surgery (SDC) | payer OTHER ==
[2024-01-22 13:07] LABS: BASOPHILS # (AUTO) 0.02 K/uL (0.00-0.20); BASOPHILS % (AUTO) 0.2 % (0.0-5.0); EOSINOPHILS # (AUTO) 0.14 K/uL (0.00-0.70); EOSINOPHILS % (AUTO) 1.3 % (0.0-8.0); HEMATOCRIT 42.4 % (42-54); IMMATURE GRANULOCYTE ABSOLUTE 0.03 K/uL (0-1); LYMPHOCYTES # (AUTO) 1.2 K/uL (1.0-4.8); MEAN CORPUSCULAR HEMOGLOBIN 31.5 pg (27.0-33.0); MEAN CORPUSCULAR VOLUME 95.5 fL (79-99); MONOCYTES # (AUTO) 0.7 K/uL (0.1-1.0); MONOCYTES % (AUTO) 6.4 % (3.0-13.0); NEUTROPHILS # (AUTO) 8.4 K/uL (1.8-7.7); NEUTROPHILS % (AUTO) 80.8 % (40.0-77.0); PLATELET COUNT (AUTO) 207 K/uL (130-400); RED BLOOD CELL COUNT(AUTO) 4.44 MIL/uL (4.50-6.20); RED CELL DISTRIBUTION WIDTH 12.7 % (11.0-15.5); WHITE BLOOD COUNT (AUTO) 10.4 K/uL (4.8-10.8)
[2024-01-22 13:17] LABS: INR 1.07 (0.85-1.15); PROTHROMBIN TIME 11.5 SEC (9.6-11.6)
[2024-01-22 13:18] LABS: PARTIAL THROMBOPLASTIN TIME 34.5 SEC (26.3-35.5)
[2024-01-22 13:52] VITALS: BP 107/63; PULSE 86; RESP 18; TEMP 97.9
[2024-01-22 14:07] LABS: CREATININE 1.2 mg/dL (0.5-1.3)
[2024-01-26] VITALS (9 sets, daily range): BP systolic 101–152; BP diastolic 56–74; PULSE 57–90; RESP 16–17; TEMP 96.8–208.4
[~2024-01-26] VITALS: Ht 172.7 cm; Wt 100.8 kg
[~2024-01-26 08:33] MED LIST changes: +APIX5TAB PO; +ATOR-2 PO; -ATOR40TA69 PO; +BRIM5DRO5 OS; -CLOP75TA32 PO; -DICY20TA3 PO; -ERGO500093 PO; -FAMO40TA7 PO; -FISH1CAP27 PO; -INSU100I35 SQ; +LATA2.5D14 OS; +LINA145C PO; -LOSA25TA41 PO; -METO-408 PO; -OMEP40CA21 PO; -PANT40TA54 PO; +SEMA2PEN SQ; -SUCR1TAB2 PO; +TRIA60LO12 TP; -VENL-191 PO; +VENL-83 PO
[2024-01-26] MEDS: 0.9%NACL 1000ML 1,000 ML IV SCH (09:29)
[2024-01-26] MEDS ORDERED: HEParin-NS 1,000 UNIT/500 ML 500 ML IV ONE (11:39)
[2024-01-26] MEDS ORDERED: HEParin 10,000 UNIT/10ML (1,000 UNIT/ML) VIAL ONE (11:39)
[2024-01-26] MEDS ORDERED: LIDOCAINE HCL 1% MDV 50ML VIAL ONE (11:39)
[2024-01-26] MEDS ORDERED: MEPERIDINE-PF 25 MG/ML SYG ONE (12:01)
[2024-01-26] MEDS ORDERED: MIDAZOLAM HCL 1 MG/ML 2ML VIAL ONE (12:02)
== END 2024-01-26 16:25 | disposition home or self-care (01) ==
LOC: DAH 08:33
PROVIDERS: ATTEND Internal Medicine Cardiovascular Disease
DX: I48.3 Typical atrial flutter (principal); I45.89 Other specified conduction disorders; I25.10 Atherosclerotic heart disease of native coronary artery without angina pectoris; E78.5 Hyperlipidemia, unspecified; G47.30 Sleep apnea, unspecified; I11.0 Hypertensive heart disease with heart failure; I50.32 Chronic diastolic (congestive) heart failure; M16.0 Bilateral primary osteoarthritis of hip; F32.A Depression, unspecified; E66.01 Morbid (severe) obesity due to excess calories; F43.10 Post-traumatic stress disorder, unspecified; E11.9 Type 2 diabetes mellitus without complications; Z99.89 Dependence on other enabling machines and devices; Z79.01 Long term (current) use of anticoagulants; Z79.899 Other long term (current) drug therapy
CPT/HCPCS: 80048; 85025; 85610; 85730; 36415; 93653; 93662; 82948 ×2; C1894 ×3; C1732 ×2; A4649 ×2; C1760 ×3; J1644 ×2; J2250; J2175; J3490; A4215; A4222; A4221; A4663; A4216; A4606; A4223 ×3; 99156; 99157